=== PATIENT | male | born 1930 | race Caucasian/White ===

== ENCOUNTER 2016-06-06 11:17 | Inpatient (IN) ==
--- NOTE | 2016-06-06 13:05 | Emergency Department Note ---
Lower Extremity Injury HPI - General Chief Complaint: Extremity Injury, Lower Stated Complaint: Right hip pain Time Seen by Provider: 06/06/16 12:55 Source: patient Mode of arrival: wheelchair Limitations: no limitations - History of Present Illness HPI Narrative: 85-year-old male who had fallen yesterday at approximately 3:00 am pain in r ihip. Patient has a chronic pain to the right hip. However, as he had a hip replacement in 1991 and in the last 2 years. His been chronic increased pain. Just seen her orthopedic doctor, Dr. Cooper states he needs any replacement, however, due to his chronic illnesses. He did not feel he should have this operation. Does have atrial fibrillation and is on Coumadin. he states he did hit his head on the fall. Still complaining about pain to his right hand - Related Data Home Medications Medication Instructions Recorded Confirmed Allopurinol [Zyloprim] 100 mg PO DAILY 07/07/15 01/02/16 Digoxin [Digitek] 125 mcg PO DAILY 07/07/15 01/02/16 Furosemide [Lasix] 80 mg PO BID 07/07/15 01/02/16 HYDROcodone/ACETAMINOPHEN [Xodol 1 each PO TID PRN 07/07/15 01/02/16 10-300 Tablet] Insulin NPH, Human [HumaLIN N] 30 unit SQ QAM 07/07/15 01/02/16 Metoprolol Tartrate [Lopressor] 25 mg PO BID 07/07/15 01/02/16 Nateglinide [Starlix] 120 mg PO TID 07/07/15 01/02/16 Potassium Chloride [Klor-Con M20] 80 meq PO DAILY 07/07/15 01/02/16 Warfarin Sodium [Jantoven] 5 mg PO DAILY 07/07/15 01/02/16 Previous Rx's Medication Instructions Recorded Insulin NPH, Human [HumaLIN N] 1 unit SQ QAM #30 unit 06/27/15 Allergies Allergy/AdvReac Type Severity Reaction Status Date / Time No Known Drug Allergies Allergy Unknown Verified 06/06/16 11:21 [NO KNOWN DRUG ALLERGIES] Review of Systems All systems ED: reviewed and negative except as stated. Constitutional: Denies: fever Eyes: Denies: eye pain ENT ED: Denies: ear pain Cardiovascular: Denies: chest pain Respiratory: Denies: cough Gastrointestinal: Denies: abdominal pain Genitourinary: Denies: urgency Musculoskeletal: Reports: other (right hip pain in the right hand pain) Integumentary: Reports: rash Neurological: Reports: headache, weakness. Denies: numbness, paresthesias, confusion Psychiatric: Denies: anxiety, depression Endocrine: Reports: fatigue Past Medical History - Past Medical History Medical history: Reports: arthritis, atrial fibrillation, CHF, COPD, coronary artery disease, diabetes, other (recurrent anemia, gout) Surgical history ED: Reports: hip replacement - Social History smoking status: Former smoker Alcohol use: Reports: Rarely Drug use: Reports: none Physical Exam - General Limitations: no limitations General appearance: alert - Head Head exam: atraumatic, normocephalic - Eye Eye exam: Present: normal appearance, PERRL - ENT ENT exam: normal exam, normal oropharynx - Neck Neck exam: Present: normal inspection, full ROM. Absent: trachea midline - Chest Chest inspection: Present: normal inspection. Absent: symmetric chest wall rise - Respiratory Respiratory exam: Present: normal lung sounds bilaterally. Absent: respiratory distress, wheezes - Cardiovascular Cardiovascular exam: Present: regular rate, normal rhythm. Absent: bradycardia , tachycardia - Abdominal Exam Abdominal exam: Present: distention. Absent: tenderness - exam: Present: normal inspection. Absent: testicular tenderness, urethral discharge - Extremities Exam Extremities exam: Present: full ROM, tenderness (right hip). Absent: normal inspection - Expanded Upper Extremity Exam Arm exam: Present: normal inspection Elbow exam: Present: normal inspection Forearm/Wrist exam: Present: normal inspection Hand exam: Present: tenderness (3rd mc joint) - Back Exam Back exam: Present: normal inspection, full ROM - Neurological Exam Neurological exam: Present: alert, oriented X3, CN II-XII intact - Psychiatric Psychiatric exam: Present: normal affect, normal mood Course Vital Signs Temperature 97.2 F L 06/06/16 11:17 Pulse Rate 88 06/06/16 11:17 Respiratory Rate 20 06/06/16 11:17 Blood Pressure 139/78 06/06/16 11:17 Pulse Oximetry (%) 92 06/06/16 11:17 Temperature 97.2 F L 06/06/16 11:17 Pulse Rate 96 H 06/06/16 16:32 Respiratory Rate 23 06/06/16 16:32 Blood Pressure 110/66 06/06/16 16:32 Pulse Oximetry (%) 96 06/06/16 16:32 Extremity Injury, Lower - MDM Narrative Medical decision making narrative: dr Pearson has reviewed case and xrays and felt pt to be ptreated with a walker and pain meds and he will see in clinic. However pt is having difficulty amublating and lives by himself. Has had previous orthopedic consults and all have felt sugery would be high risk with all his co mobidities. Dr Adams contacted and pt to e admitted and placement for rehab center - Lab Data Result diagrams: 06/06/16 14:00 Lab Results 06/06/16 06/06/16 Range/Units 14:00 14:00 WBC 15.1 H (4.5-11.0) K/mcL RBC 4.89 (4.50-5.90) M/mcL Hgb 13.5 (13.5-16.5) g/dL Hct 41.8 (41.0-55.0) % POC Hct 43.0 (41.0-55.0) % MCV 85.4 (80.0-100.0) fL MCH 27.7 (26.0-34.0) pg MCHC 32.4 (31.0-36.0) g/dL RDW 15.9 H (11.5-14.5) % Plt Count 206 (140-440) K/mcL MPV 9.0 (7.4-10.4) fL Gran % 82.5 H (38.0-78.0) % Lymph % (Auto) 9.5 L (15.5-49.0) % [place] % (Auto) 6.0 (1.0-12.0) % Eos % (Auto) 1.5 (0.0-7.0) % Baso % (Auto) 0.5 (0.0-2.0) % Gran # 12.4 H (1.8-8.0) K/mcL Lymph # 1.4 L (1.5-4.8) K/mcL [place] # 0.9 (0.1-0.9) K/mcL Eos # 0.2 (0.0-0.7) K/mcL Baso # 0.1 (0.0-0.3) K/mcL POC Sodium 135 (133-145) mmol/L POC Potassium 3.4 (3.3-5.1) mmol/L POC Chloride 85 L (96-108) mmol/L POC Total CO2 41 H* (22-30) mmol/L POC BUN 37 H (8-23) mg/dl POC Creatinine 1.4 H (0.7-1.2) mg/dl POC Glucose 176 H (70-105) mg/dL POC WB Ioniz Calcium 1.11 L (1.16-1.32) mmol/L Disposition Clinical Impression: Closed right hip fracture Disposition: Xfer As Inpt ([facility]) Condition: Fair Referrals: Georgia Roberts MD [Primary Care Provider] -
--- NOTE | 2016-06-06 13:47 | Cat Scan Report ---
CLINICAL INFORMATION: Trauma - on Coumadin COMPARISON: 04/26/2012 TECHNIQUE: 2.5 mm helical slices were obtained in the skull base to vertex. Following reconstruction, axial reformatted images were reviewed at bone and parenchymal windows. FINDINGS: The ventricles, sulci, fissures, and cisterns are symmetrically enlarged compatible with moderate age-related atrophy - no subdural hemorrhage or other extra-axial fluid collection appreciated. Minimal chronic ischemic changes in the cerebral white matter similar previous study. There is no intracerebral hemorrhage, mass effect, edema or other acute finding. Bone windows shows no fracture or other osseous abnormality IMPRESSION: Moderate atrophy and chronic ischemic changes in deep cerebral white matter - expected for age. No intracerebral hemorrhage or other acute finding. Interpreted and Authenticated by: Jalil Whatley 06/06/16
--- NOTE | 2016-06-06 14:34 | XRay Report ---
CLINICAL INFORMATION: Trauma COMPARISON: 11/28/2015 FINDINGS: A mildly comminuted, minimally displaced fracture through the right greater trochanter is appreciated. The fracture lines communicate with the proximal femoral stem prostheses. The right total hip prostheses remains in stable alignment with slightly more lateral canting of the prosthetic acetabulum then is typically seen. Both SI and left hip joints are unremarkable IMPRESSION: Mildly comminuted, minimally displaced fracture through the right greater trochanter the fracture communicates with the prosthetic femoral stem. Interpreted and Authenticated by: Jalil Whatley 06/06/16
--- NOTE | 2016-06-06 14:36 | XRay Report ---
CLINICAL INFORMATION: Trauma COMPARISON: None. FINDINGS: No fracture identified. Moderate degenerative change in the first CMC appreciated. There is moderate synovial swelling in the second and third MCP which could be posttraumatic or due to arthritis. IMPRESSION: No evidence of fracture Moderate degenerative change in the first CMC Second and third MCP synovial swelling posttraumatic versus inflammatory Interpreted and Authenticated by: Jalil Whatley 06/06/16
[2016-06-06 14:37] LABS: Basophils # (Auto) 0.1 K/mcL (0.0-0.3); Basophils % (Auto) 0.5 % (0.0-2.0); Eosinophils # (Auto) 0.2 K/mcL (0.0-0.7); Eosinophils % (Auto) 1.5 % (0.0-7.0); Granulocytes % (Auto) 82.5 % (38.0-78.0); Lymphocytes # (Auto) 1.4 K/mcL (1.5-4.8); Lymphocytes % (Auto) 9.5 % (15.5-49.0); Mean Cell Volume 85.4 fL (80.0-100.0); Mean Corpuscular HGB Conc 32.4 g/dL (31.0-36.0); Mean Corpuscular Hemoglobin 27.7 pg (26.0-34.0); Monocytes # (Auto) 0.9 K/mcL (0.1-0.9); Platelet Count 206 K/mcL (140-440); RBC 4.89 M/mcL (4.50-5.90); Red Cell Distribution Width 15.9 % (11.5-14.5)
--- NOTE | 2016-06-06 14:38 | XRay Report ---
CLINICAL INFORMATION: Trauma COMPARISON: The 2016 FINDINGS: Moderate cardiomegaly is unchanged. Mediastinum and pulmonary vessels are normal on today's study. Lungs are clear. No effusions. IMPRESSION: Interval resolution in CHF. No acute cardiopulmonary or posttraumatic change Interpreted and Authenticated by: Jalil Whatley 06/06/16
[2016-06-06] MEDS ORDERED: 0.9 % SODIUM CHLORIDE 1,000 ML IV ONE (14:59)
[2016-06-06] MEDS: HYDROmorphone 2 MG/ML SYRINGE IV PRN ×2 (15:05→17:00)
[2016-06-06] MEDS ORDERED: POTASSIUM CHLORIDE 20 MEQ PACKET PO PRN (17:33)
[2016-06-06] MEDS ORDERED: ACETAMINOPHEN 1,000 MG/100 ML BOTTLE IV PRN (17:33)
[2016-06-06] MEDS ORDERED: HYDROmorphone 2 MG/ML SYRINGE IV PRN (17:33)
[2016-06-06] MEDS ORDERED: MAGNESIUM SULFATE 2 GM/50 ML BAG IV PRN (17:33)
[2016-06-06] MEDS ORDERED: ONDANSETRON 4 MG/2 ML VIAL IV PRN (17:33)
[2016-06-06] MEDS ORDERED: ACETAMINOPHEN 325 MG TABLET PO PRN (17:33)
[2016-06-06] MEDS ORDERED: LORazepam 2 MG/ML VIAL IV PRN (19:37)
[2016-06-06] MEDS ORDERED: CYCLOBENZAPRINE 10 MG TABLET PO PRN (19:37)
[2016-06-06] MEDS: 0.9 % SODIUM CHLORIDE 1,000 ML IV SCH (19:51)
--- NOTE | 2016-06-06 20:00 | History and Physical Report ---
DATE OF ADMISSION: 06/06/2016 DATE OF ADMISSION: 06/06/2016 REASON FOR ADMISSION: Fall, right hip fracture. HISTORY OF CHIEF COMPLAINT: The patient is an 85-year-old gentleman with a history of COPD on 3.5 liters of oxygen. The patient sees Georgia Roberts for primary medical issues and has been in his baseline state of health until last night. While attempting to go to the bathroom, he got off balance and fell and landed on his right hip sustaining injuries. He then came to [facility] ER due to pain and limiting mobility. Initial workup was significant for right hip fracture. Orthopedics was consulted; however, the fracture was deemed nonoperable and hospitalist service was subsequently consulted for management of pain and coordinating SNF transfer. At time of examination, the patient is alert, oriented but endorses significant pain and spasm around the right thigh. He denies lightheadedness, dizziness prior to fall and attributes to fall getting off balance. He is normally on 3.5 liters oxygen for his baseline COPD. His other medical conditions including diabetes, hypertension and atrial fibrillation for which he takes Coumadin and digoxin have been essentially well controlled by his primary care physician. Other than that, the patient denies chest pain, headache, fever, shaking chills, glandular swelling, weight loss, diarrhea, dysuria, or bloody stool. He further denies lower extremity swelling, chest pain, shortness of breath. REVIEW OF SYSTEMS: Ten-point review of system was performed and negative except the ones discussed above. PAST MEDICAL HISTORY: 1. History of diabetes mellitus type 2. 2. Atrial fibrillation. 3. Anticoagulation for CVA prophylaxis. 4. Hypertension. CURRENT MEDICATIONS: 1. Insulin Glargine. 2. Warfarin. 3. Digoxin. 4. Allopurinol 100. 5. Metoprolol 50 2 times a day. 6. Furosemide 80 2 times a day. 7. Glipizide 5 daily. 8. Potassium 20 2 times a day. Medication is currently being verified, exact doses are unclear. SOCIAL HISTORY: The patient is a former smoker. He has a son who lives in [place]. He is otherwise fairly independent. Denies history of alcoholism, smoking. He is a FULL CODE STATUS. FAMILY HISTORY: Nonrelevant. PHYSICAL EXAMINATION: GENERAL: The patient is alert, in significant distress from the thigh pain. BMI 30. Height 5 feet 8 inches. VITAL SIGNS: Blood pressure 134/95, respiratory rate 19, temperature 98.2, pulse 102, sats 97 percent on 3.5 liters of oxygen. HEENT: Pupils symmetric. Oral cavity is dry. No ear or nose discharge. Head is normocephalic and atraumatic. NECK: No lymphadenopathy. CHEST: S1, S2, irregular rhythm. Ejection systolic murmur grade 1. Diminished breath sounds at bases. ABDOMEN: Soft and nontender. LOWER EXTREMITIES: No cyanosis or clubbing. Stasis changes bilateral lower extremities. Right lower extremity shortened and externally rotated along with significant tenderness along the right thigh lateral aspect along with bluish discoloration/bruising. Also, left third metacarpophalangeal joint swelling along with lateral deviation of middle finger. SKIN: Otherwise no suspicious lesions. PSYCH: Alert, cooperative, mild anxiety. NEURO: Normal, high functional, limited neuro exam. LABS AND IMAGING: X-ray of hand: No evidence of fracture. X-ray hip: Right hip comminuted fracture. X-ray chest: Interval resolution of CHF. No acute process. AB.5/63/136. CT head: Chronic ischemic changes, moderate atrophy but no acute process. White count 15.1, hemoglobin 13.5, platelets 206. INR 1.7. Sodium 135, potassium 3.4, creatinine 1.4, BUN 37. Digoxin 0.7. ASSESSMENT AND PLAN: An 85-year-old admitted with right hip fracture. 1. Right hip fracture, deemed nonoperable by orthopedics. Continue pain management and arrange correction facility transfer for continued rehabilitation. 2. Prior medical issues including history of atrial fibrillation. Continue digoxin. Level is therapeutic. Anticoagulation for cerebrovascular accident prophylaxis. Continue Coumadin. 3. Diabetes mellitus type 2. Continue basal prandial insulin. 4. History of gout. Continue allopurinol. 5. Hypertension. Continue metoprolol. PLAN FOR TODAY: 1. Admit as inpatient. 2. Pain management. 3. Orthopedics consult. 4. Preexisting medical condition management as above. AA:morena Job ID: [id number] Doc ID: [id number] Brooks MENDES
[2016-06-06] MEDS: WARFARIN 2.5 MG TABLET PO SCH (20:11)
[2016-06-06] MEDS: IPRATROPIUM/ALBUTEROL 3 ML AMPUL.NEB NEB SCH (20:15)
[2016-06-06] MEDS: BUDESONIDE 0.5 MG/2 ML AMPUL.NEB NEB SCH (20:17)
[2016-06-06 20:55] LABS: Appearance,Urine CLEAR; Bilirubin,Urine NEG (NEG); Color,Urine YELLOW; Glucose,Urine (UA) NEGATIVE (NEG); Leukocyte Esterase,Urine NEG /uL (NEG); Nitrate,Urine NEG (NEG); Protein,Urine NEG (NEG); Urine Blood NEG mg/dL (<0.03); Urobilinogen,Urine NEG (NEG)
[2016-06-06] MEDS ORDERED: MAGNESIUM HYDROXIDE 30 ML ORAL.SUSP PO PRN (21:00)
[2016-06-06] MEDS ORDERED: DIGOXIN 125 MCG TABLET PO ONE (21:00)
[2016-06-06] MEDS ORDERED: traZODone HCL 50 MG TABLET PO PRN (21:00)
[2016-06-06] MEDS: HEPARIN 5,000 UNIT/ML VIAL SQ SCH (21:42)
[2016-06-06] MEDS: SENNOSIDES/DOCUSATE SODIUM 1 TAB TABLET PO SCH (21:42)
[2016-06-06] MEDS: DOCUSATE SODIUM 100 MG CAPSULE PO SCH (21:42)
[2016-06-06] MEDS: 0.9 % SODIUM CHLORIDE 10 ML SYRINGE IV SCH (21:42)
[2016-06-07] MEDS: IPRATROPIUM/ALBUTEROL 3 ML AMPUL.NEB NEB SCH ×7 (00:04→22:23)
[2016-06-07] MEDS: 0.9 % SODIUM CHLORIDE 10 ML SYRINGE IV SCH ×3 (05:00→22:06)
[2016-06-07 05:37] LABS: Mean Cell Volume 85.8 fL (80.0-100.0); Mean Corpuscular Hemoglobin 28.3 pg (26.0-34.0); Platelet Count 189 K/mcL (140-440); RBC 4.31 M/mcL (4.50-5.90); Red Cell Distribution Width 15.5 % (11.5-14.5)
[2016-06-07 06:51] LABS: ALT/SGPT 15 U/l (0-40); Albumin 3.3 gm/dL (3.2-5.2); Alkaline Phosphatase 60 U/L (39-117); Bilirubin,Direct < 0.2 mg/dL (0.0-0.3); Blood Urea Nitrogen 35 mg/dl (8-23); Gamma Glutamyl Transpeptidase 22 U/L (8-61); Magnesium 1.9 mg/dL (1.6-2.5)
[2016-06-07] MEDS: BUDESONIDE 0.5 MG/2 ML AMPUL.NEB NEB SCH ×2 (07:38→19:23)
[2016-06-07 08:15] LABS: Eosinophils % (Manual) 3 % (0-7); Lymphocytes % 17 % (15-49); Monocytes % (Manual) 8 % (1-12); Platelet Estimate NORMAL (NORMAL); RBC Morphology NORMAL (NORMAL); Segmented Neutrophils % 72 % (38-78)
[2016-06-07] MEDS: MULTIVIT,THER IRON,CA,FA & MIN 1 TABLET PO SCH (09:40)
[2016-06-07] MEDS: HEPARIN 5,000 UNIT/ML VIAL SQ SCH ×2 (09:41→20:34)
[2016-06-07] MEDS: DOCUSATE SODIUM 100 MG CAPSULE PO SCH ×2 (09:41→20:34)
--- NOTE | 2016-06-07 10:01 | Internal Med Progress Note ---
Medical - PN: Subj Patient information: Note initiated : 06/07/16 at 9:59 am Service Date, if different from initiated Date: [] Patient: Davide Santo 85 y/o M admitted on 06/06/16 for Right hip pain. Chief Complaint: [] Interval history: 06/06-patient admitted with right hip fracture. ER discussed with orthopedics and as per orthopedics the fracture is unchanged compared to 1 year ago and is nonoperable. Patient has had prior aseptic loosening and was seen by Dr. Benson. He carries multiple comorbidities including O2 dependent COPD and would be a high risk surgical candidate. I was requested by ED physician to admit the patient for pain management and coordinate transfer to care Center as patient has been living alone which would not be possible due to fracture. 06/07 patient undergoing pain management along with physical therapy. Case management coordinating SNF transfer. Case discussed with Dr. Miah Pearson orthopedics. continue pain management and coordination of transfer. - Constitutional Vitals: Vital Signs Temp Pulse Resp BP Pulse Ox 97.6 F 106 H 16 96/61 98 06/07/16 07:51 06/07/16 08:21 06/07/16 08:21 06/07/16 07:51 06/07/16 08:21 Period Temp Pulse Resp BP Sys/Fletcher Pulse Ox Last 24 Hr 97.6 F-98.5 F 80-115 16-20 96-124/61-86 96-98 Intake and Output 06/06/16 06/07/16 06/07/16 21:59 05:59 13:59 Intake Total 240 / 1240 750 / 750 1080 / 1080 Output Total 400 / 400 450 / 450 50 / 50 Balance -160 / 840 300 / 300 1030 / 1030 Weight 194 lb 8 oz Intake & Output: Intake & Output 06/06/16 06/07/16 06/07/16 21:59 05:59 13:59 Intake Total 240 / 1240 750 / 750 1080 / 1080 Output Total 400 / 400 450 / 450 50 / 50 Balance -160 / 840 300 / 300 1030 / 1030 Weight 194 lb 8 oz Intake: Oral 240 / 240 750 / 750 1080 / 1080 Output: Void Amount 400 / 400 450 / 450 50 / 50 Other: Meal Dinner Breakfast Percent of Meal Consumed 75% 100% Feeding Ability Independent Independent # Voids 1 2 # Bowel Movements 0 General appearance: no acute distress Exam: right thigh pain/spasm Nonlabored breathing No anxietyalert and oriented on 3 L oxygen Medical - PN: Obj Da - Labs CBC & Chem 7: 06/07/16 04:50 06/07/16 04:50 Labs: Abnormal Lab Results 06/07/16 06/07/16 06/07/16 04:50 04:50 04:50 WBC 13.5 H RBC 4.31 L Hgb 12.2 L Hct 37.0 L RDW 15.5 H PT 19.2 H INR 1.6 H Chloride 89 L Carbon Dioxide 35 H BUN 35 H Creatinine 1.5 H Glucose 191 H Uric Acid 9.0 H Triglycerides 184 H Meds: Medications Acetaminophen (Tylenol) 650 mg PO Q4-6HP PRN PRN Reason: PAIN/FEVER > 101 Acetaminophen/Hydrocodone Bitart ([place] 5/325mg) 0 tab PO Q4HP PRN PRN Reason: Pain Albuterol/Ipratropium (Duoneb) 3 ml NEB Q4HRT [facility] Last Admin: 06/07/16 07:39 Dose: 3 ml Budesonide (Pulmicort) 0.5 mg NEB Q12 [facility] Last Admin: 06/07/16 07:38 Dose: 0.5 mg Cyclobenzaprine HCl (Flexeril) 5 mg PO TIDP PRN PRN Reason: Muscle Spasm Docusate Sodium (Colace) 100 mg PO BID [facility] Last Admin: 06/07/16 09:41 Dose: 100 mg Heparin Sodium (Porcine) (Heparin) 5,000 unit SQ Q12 [facility] Last Admin: 06/07/16 09:41 Dose: 5,000 unit Hydromorphone HCl (Dilaudid) 0 mg IV Q4HP PRN PRN Reason: Pain Magnesium Sulfate (Magnesium Sulfate) 2 gm in 50 mls @ 50 mls/hr IV UD PRN PRN Reason: MG = or < 1.7 Sodium Chloride (Sodium Chloride 0.9%) 1,000 mls @ 50 mls/hr IV .Q20H [facility] Stop: 06/09/16 05:32 Last Admin: 06/06/16 19:51 Dose: 50 mls/hr Acetaminophen (Ofirmev) 1,000 mg in 100 mls @ 200 mls/hr IV Q6HP PRN PRN Reason: PAIN/FEVER > 101 Iron Carb/Multivit/Director Of Graduate Admissions/Folic Acid (Multivitamin W/Minerals) 1 tab PO DAILY [facility] Last Admin: 06/07/16 09:40 Dose: 1 tab Lorazepam (Ativan) 0.5 mg IV Q4HP PRN PRN Reason: Muscle Spasm Last Admin: 06/06/16 21:42 Dose: 0.5 mg Magnesium Hydroxide (Milk Of Magnesia) 30 ml PO HSP PRN PRN Reason: Constipation Ondansetron HCl (Zofran) 4 mg IV Q4-6HP PRN PRN Reason: Nausea And Vomiting Potassium Chloride (Klor-Con) 40 meq PO DAILYP PRN PRN Reason: K+ < 3.5 Senna/Docusate Sodium (Senna Plus Tablet) 1 tab PO HS [facility] Last Admin: 06/06/16 21:42 Dose: 1 tab Sodium Chloride (Saline Flush) 10 ml IV Q8 [facility] Last Admin: 06/07/16 05:00 Dose: Not Given Trazodone HCl (Desyrel) 50 mg PO [facility] PRN PRN Reason: Insomnia Warfarin Sodium (Coumadin) 2.5 mg PO MoWeFr@1400 [facility] Last Admin: 06/06/16 20:11 Dose: 2.5 mg Warfarin Sodium (Coumadin) 5 mg PO SuTuThSa@1400 [facility] Medical - PN: A/P - Time Spent With Patient Total time spent is greater than 50% in coordination of care (as documented) at patient's floor/unit and/or counseling patient: 15 - 24 minutes (1) Closed right hip fracture Status: Acute Assessment and plan: * right hip fracture-nonoperable as per orthopedics. continue pain management physical therapy and SNF transfer coordination * pain management on opioids * history of COPD - O2 dependent. Continue bronchodilators * history of gout on allopurinol * A. fib on digoxin/Metoprolol * Anticoagulation on warfarin for CVA prophylaxis * DM type II on basal prandial insulin * hypertension on metoprolol * full CODE STATUS plan * Pain management * Physical therapy * Pre-existing medical condition management as above * SNF transfer coordination Current Visit: Yes Medical - PN: Qual - VTE Deep Vein Thrombosis/Pulmonary Embolism Present on Admission: No
--- NOTE | 2016-06-07 10:54 | Consultation ---
DATE OF CONSULTATION: 06/07/2016 HISTORY: I was asked in consultation in the ER a question on this patient. I did review his chart from the office and he saw Dr. Benson approximately 1 year ago for a similar issue. 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 He fell recently, had similar symptoms and there is some fracturing of the greater trochanter, which was likely residual from that a year ago. There is no displacement. There remains aseptic loosening. Because of his extensive medical history and he is on 3.5 liters oxygen, the best option would be a revision total hip arthroplasty but medically that would be challenging for him. PLAN: The plan will be for admission to the hospital and send him to the care center since he has no one at home to help him and he can start progressing with weight bearing as tolerated, as long as he is not in any pain, but he needs to use his walker. He can follow up in the office in about 2 weeks for repeat radiographs. He is comfortable with this plan. NOHEMI:siva Job ID: [id number] Doc ID: [id number] Luis Pearson MD
[2016-06-07] MEDS ORDERED: WARFARIN 5 MG TABLET PO SCH (14:00)
[2016-06-07] MEDS: 0.9 % SODIUM CHLORIDE 1,000 ML IV SCH (17:08)
[2016-06-07] MEDS: SENNOSIDES/DOCUSATE SODIUM 1 TAB TABLET PO SCH (20:34)
[2016-06-07] MEDS: HYDROcodone/APAP 5/325MG TABLET PO PRN (20:37)
[2016-06-08] MEDS: IPRATROPIUM/ALBUTEROL 3 ML AMPUL.NEB NEB SCH ×5 (04:49→18:34)
[2016-06-08] MEDS: 0.9 % SODIUM CHLORIDE 10 ML SYRINGE IV SCH ×3 (04:50→21:16)
[2016-06-08 05:39] LABS: Mean Cell Volume 85.8 fL (80.0-100.0); Mean Corpuscular HGB Conc 33.7 g/dL (31.0-36.0); Mean Corpuscular Hemoglobin 28.9 pg (26.0-34.0); Platelet Count 161 K/mcL (140-440); RBC 3.73 M/mcL (4.50-5.90); Red Cell Distribution Width 15.7 % (11.5-14.5)
[2016-06-08 06:09] LABS: ALT/SGPT 12 U/l (0-40); Albumin 3.3 gm/dL (3.2-5.2); Albumin/Globulin Ratio 1.1 (1.0-2.3); Alkaline Phosphatase 50 U/L (39-117); Bilirubin,Direct < 0.2 mg/dL (0.0-0.3); Blood Urea Nitrogen 25 mg/dl (8-23); Gamma Glutamyl Transpeptidase 16 U/L (8-61); Magnesium 2.2 mg/dL (1.6-2.5); Uric Acid 7.8 mg/dL (2.5-8.0)
[2016-06-08] MEDS: BUDESONIDE 0.5 MG/2 ML AMPUL.NEB NEB SCH ×3 (06:53→18:34)
[2016-06-08 07:07] LABS: Anisocytosis 1+ (NONE SEEN); Band Neutrophils % 6 % (0-10); Lymphocytes % 4 % (15-49); Monocytes % (Manual) 8 % (1-12); Ovalocytes 1+ (NONE SEEN); Platelet Estimate NORMAL (NORMAL); RBC Morphology ABNORM (NORMAL); Segmented Neutrophils % 82 % (38-78)
[2016-06-08] MEDS: POTASSIUM CHLORIDE 20 MEQ TABLET PO SCH ×2 (07:58→14:23)
[2016-06-08] MEDS ORDERED: FUROSEMIDE 80 MG TABLET PO SCH ×2 (08:00→16:00)
[2016-06-08] MEDS: FUROSEMIDE 80 MG TABLET PO SCH ×2 (08:02→17:45)
[2016-06-08] MEDS ORDERED: HYDROCODONE/APAP 7.5/325MG TABLET PO PRN (08:17)
[2016-06-08] MEDS: MULTIVIT,THER IRON,CA,FA & MIN 1 TABLET PO SCH (08:18)
[2016-06-08] MEDS: DOCUSATE SODIUM 100 MG CAPSULE PO SCH ×2 (08:19→21:13)
[2016-06-08] MEDS: HEPARIN 5,000 UNIT/ML VIAL SQ SCH ×2 (08:19→21:13)
[2016-06-08] MEDS ORDERED: DEXTROSE 50% 50 ML VIAL IV PRN (08:19)
[2016-06-08] MEDS ORDERED: METOLAZONE 2.5 MG TABLET PO PRN (08:30)
[2016-06-08] MEDS: ALLOPURINOL 100 MG TABLET PO SCH (08:43)
[2016-06-08] MEDS: glipiZIDE 5 MG TAB.XL.24H PO SCH (08:44)
[2016-06-08] MEDS: METOPROLOL TARTRATE 25 MG TABLET PO SCH ×2 (08:44→21:15)
[2016-06-08] MEDS: INSULIN LISPRO 1 UNIT/0.01 ML UNIT SQ SCH ×4 (09:02→21:24)
[2016-06-08] MEDS: NEUTRA PHOS 1 PACKET PO SCH ×2 (10:24→21:15)
--- NOTE | 2016-06-08 10:30 | Internal Med Progress Note ---
Medical - PN: Subj Patient information: Note initiated : 06/08/16 at 10:28 am Service Date, if different from initiated Date: [] Patient: Davide Santo 85 y/o M admitted on 06/06/16 for Right Hip Pain/Right Hip Fracture. Chief Complaint: [] Interval history: 06/06-patient admitted with right hip fracture. ER discussed with orthopedics and as per orthopedics the fracture is unchanged compared to 1 year ago and is nonoperable. Patient has had prior aseptic loosening and was seen by Dr. Benson. He carries multiple comorbidities including O2 dependent COPD and would be a high risk surgical candidate. I was requested by ED physician to admit the patient for pain management and coordinate transfer to care Center as patient has been living alone which would not be possible due to fracture. 06/07 patient undergoing pain management along with physical therapy. Case management coordinating SNF transfer. Case discussed with Dr. Miah Pearson orthopedics. continue pain management and coordination of transfer. 06/08- patient doing well. No overnight events. No concerns per staff. No fever chills nausea vomiting. Case discussed with orthopedics. Continue physical therapy/weightbearing as tolerated as per orthopedic recommendations. Anticipate SNF transfer in 24 hours. Patient overnight afebrile. No active concerns - Constitutional Vitals: Vital Signs Temp Pulse Resp BP Pulse Ox 97.6 F 93 H 18 116/66 98 06/08/16 10:01 06/08/16 10:01 06/08/16 10:01 06/08/16 10:01 06/08/16 10:01 Period Temp Pulse Resp BP Sys/Fletcher Pulse Ox Last 24 Hr 96.8 F-99.8 F 86-135 18-24 100-148/61-83 93-98 Intake and Output 06/07/16 06/08/16 06/08/16 21:59 05:59 13:59 Intake Total 1600 / 1600 500 / 500 Output Total 525 / 525 500 / 500 Balance 1075 / 1075 0 / 0 Weight 200 lb 8 oz Intake & Output: Intake & Output 06/07/16 06/08/16 06/08/16 21:59 05:59 13:59 Intake Total 1600 / 1600 500 / 500 Output Total 525 / 525 500 / 500 Balance 1075 / 1075 0 / 0 Weight 200 lb 8 oz Intake: IV 1000 / 1000 Sodium Chloride 0.9% 1, 1000 / 1000 000 ml @ 50 mls/hr IV . Q20H [facility] Rx#:[id number] Oral 600 / 600 500 / 500 Output: Void Amount 525 / 525 500 / 500 Other: # Voids 1 # Bowel Movements 1 1 General appearance: cooperative, no acute distress Exam: No anxiety nonlabored breathing alert oriented no lymphedema Medical - PN: Obj Da - Labs CBC & Chem 7: 06/08/16 04:40 06/08/16 04:40 Labs: Abnormal Lab Results 06/08/16 06/08/16 06/08/16 04:40 04:40 04:40 WBC 12.4 H RBC 3.73 L Hgb 10.8 L Hct 32.0 L RDW 15.7 H Seg Neutrophils % 82 H Lymphocytes % 4 L Nucleated RBCs 1 H RBC Morphology Abnorm A Polychromasia Few A Anisocytosis 1+ A Ovalocytes 1+ A PT 19.7 H INR 1.6 H Chloride 89 L Carbon Dioxide 35 H BUN 25 H Creatinine Glucose 288 H Uric Acid Phosphorus 2.4 L Triglycerides 06/07/16 06/07/16 06/07/16 04:50 04:50 04:50 WBC 13.5 H RBC 4.31 L Hgb 12.2 L Hct 37.0 L RDW 15.5 H Seg Neutrophils % Lymphocytes % Nucleated RBCs RBC Morphology Polychromasia Anisocytosis Ovalocytes PT 19.2 H INR 1.6 H Chloride 89 L Carbon Dioxide 35 H BUN 35 H Creatinine 1.5 H Glucose 191 H Uric Acid 9.0 H Phosphorus Triglycerides 184 H Meds: Medications Acetaminophen (Tylenol) 650 mg PO Q4-6HP PRN PRN Reason: PAIN/FEVER > 101 Acetaminophen/Hydrocodone Bitart ([place] 5/325mg) 0 tab PO Q4HP PRN PRN Reason: Pain Last Admin: 06/07/16 20:37 Dose: 1 tab Albuterol/Ipratropium (Duoneb) 3 ml NEB Q4HRT [facility] Last Admin: 06/08/16 06:53 Dose: 3 ml Allopurinol (Zyloprim) 100 mg PO DAILY [facility] Last Admin: 06/08/16 08:43 Dose: 100 mg Budesonide (Pulmicort) 0.5 mg NEB Q12 [facility] Last Admin: 06/08/16 06:53 Dose: 0.5 mg Cyclobenzaprine HCl (Flexeril) 5 mg PO TIDP PRN PRN Reason: Muscle Spasm Dextrose (Dextrose 50%) 0 ml IV UD PRN PRN Reason: Hypoglycemia Diagnostic Test (Pha) (Accu-Chek) 1 each FS ACHS [facility] Last Admin: 06/08/16 09:02 Dose: 1 each Digoxin (Lanoxin) 125 mcg PO SuMoWeFr@1400 [facility] Digoxin (Lanoxin) 62.5 mcg PO TuThSa@1400 [facility] Docusate Sodium (Colace) 100 mg PO BID [facility] Last Admin: 06/08/16 08:19 Dose: 100 mg Furosemide (Lasix) 80 mg PO BIDD [facility] Last Admin: 06/08/16 08:02 Dose: 80 mg Glipizide (Glucotrol Xl) 5 mg PO QAMAC [facility] Last Admin: 06/08/16 08:44 Dose: 5 mg Heparin Sodium (Porcine) (Heparin) 5,000 unit SQ Q12 [facility] Last Admin: 06/08/16 08:19 Dose: 5,000 unit Hydromorphone HCl (Dilaudid) 0 mg IV Q4HP PRN PRN Reason: Pain Magnesium Sulfate (Magnesium Sulfate) 2 gm in 50 mls @ 50 mls/hr IV UD PRN PRN Reason: MG = or < 1.7 Sodium Chloride (Sodium Chloride 0.9%) 1,000 mls @ 50 mls/hr IV .Q20H [facility] Stop: 06/09/16 05:32 Last Admin: 06/07/16 17:08 Dose: 50 mls/hr Acetaminophen (Ofirmev) 1,000 mg in 100 mls @ 200 mls/hr IV Q6HP PRN PRN Reason: PAIN/FEVER > 101 Insulin Glargine (Lantus) 5 unit SQ HS [facility] Insulin Human Lispro (Humalog) 0 unit SQ [facility] PRN Reason: Protocol Last Admin: 06/08/16 09:02 Dose: 4 unit Iron Carb/Multivit/[place]/Folic Acid (Multivitamin W/Minerals) 1 tab PO DAILY [facility] Last Admin: 06/08/16 08:18 Dose: 1 tab Lorazepam (Ativan) 0.5 mg IV Q4HP PRN PRN Reason: Muscle Spasm Last Admin: 06/06/16 21:42 Dose: 0.5 mg Magnesium Hydroxide (Milk Of Magnesia) 30 ml PO HSP PRN PRN Reason: Constipation Metolazone (Zaroxolyn) 2.5 mg PO DAILYP PRN PRN Reason: Edema Last Admin: 06/08/16 08:43 Dose: 2.5 mg Metoprolol Tartrate (Lopressor) 50 mg PO BID [facility] Last Admin: 06/08/16 08:44 Dose: 50 mg Ondansetron HCl (Zofran) 4 mg IV Q4-6HP PRN PRN Reason: Nausea And Vomiting Potassium Chloride (Klor-Con) 40 meq PO DAILYP PRN PRN Reason: K+ < 3.5 Potassium Chloride (Kdur) 20 meq PO BID@0800,1200 [facility] Last Admin: 06/08/16 07:58 Dose: 20 meq Potassium Chloride (Kdur) 80 meq PO [facility] Potassium/Phosphorus/Sodium (Neutra Phos) 1 packet PO BID [facility] Last Admin: 06/08/16 10:24 Dose: 1 packet Senna/Docusate Sodium (Senna Plus Tablet) 1 tab PO [facility] Last Admin: 06/07/16 20:34 Dose: 1 tab Sodium Chloride (Saline Flush) 10 ml IV Q8 [facility] Last Admin: 06/08/16 04:50 Dose: Not Given Trazodone HCl (Desyrel) 50 mg PO HSP PRN PRN Reason: Insomnia Warfarin Sodium (Coumadin) 2.5 mg PO MoWeFr@1400 [facility] Last Admin: 06/06/16 20:11 Dose: 2.5 mg Warfarin Sodium (Coumadin) 5 mg PO SuTuThSa@1400 [facility] Last Admin: 06/07/16 17:04 Dose: 5 mg Medical - PN: A/P - Time Spent With Patient Total time spent is greater than 50% in coordination of care (as documented) at patient's floor/unit and/or counseling patient: 15 - 24 minutes (1) Closed right hip fracture Status: Acute Assessment and plan: * Right hip fracture-nonoperable as per orthopedics. continue pain management, /weightbearing as tolerated and physical therapy . anticipate SNF transfer in a.m. * pain management -stable on opioids * history of COPD - O2 dependent. Continue bronchodilators * history of gout on allopurinol * A. fib on digoxin/Metoprolol * Anticoagulation on warfarin for CVA prophylaxis * DM type II on basal prandial insulin * hypertension on metoprolol * full CODE STATUS plan * continue weightbearing as tolerated along with Physical therapy * Pre-existing medical condition management as above * SNF transfer in a.m. Current Visit: Yes Medical - PN: Qual - VTE Deep Vein Thrombosis/Pulmonary Embolism Present on Admission: No
[2016-06-08] MEDS: HYDROcodone/APAP 5/325MG TABLET PO PRN ×2 (13:59→19:31)
[2016-06-08] MEDS ORDERED: DIGOXIN 125 MCG TABLET PO SCH (14:00)
[2016-06-08] MEDS: 0.9 % SODIUM CHLORIDE 1,000 ML IV SCH (14:08)
[2016-06-08] MEDS: WARFARIN 2.5 MG TABLET PO SCH (14:23)
[2016-06-08] MEDS ORDERED: POTASSIUM CHLORIDE 20 MEQ TABLET PO SCH ×2 (21:00)
[2016-06-08] MEDS ORDERED: INSULIN GLARGINE, HUMAN 1 UNIT/0.01 ML SQ SCH (21:00)
[2016-06-08] MEDS: SENNOSIDES/DOCUSATE SODIUM 1 TAB TABLET PO SCH (21:17)
[2016-06-09] MEDS: IPRATROPIUM/ALBUTEROL 3 ML AMPUL.NEB NEB SCH ×3 (01:29→07:07)
[2016-06-09] MEDS: BUDESONIDE 0.5 MG/2 ML AMPUL.NEB NEB SCH ×2 (01:29→07:07)
[2016-06-09] MEDS: 0.9 % SODIUM CHLORIDE 10 ML SYRINGE IV SCH ×2 (05:18→05:31)
[2016-06-09 06:53] LABS: Mean Corpuscular HGB Conc 32.9 g/dL (31.0-36.0); Mean Corpuscular Hemoglobin 28.6 pg (26.0-34.0); Platelet Count 156 K/mcL (140-440); RBC 3.62 M/mcL (4.50-5.90); Red Cell Distribution Width 15.2 % (11.5-14.5)
[2016-06-09 07:52] LABS: ALT/SGPT 13 U/l (0-40); Albumin 3.2 gm/dL (3.2-5.2); Alkaline Phosphatase 48 U/L (39-117); Bilirubin,Direct < 0.2 mg/dL (0.0-0.3); Blood Urea Nitrogen 28 mg/dl (8-23); Gamma Glutamyl Transpeptidase 16 U/L (8-61); Uric Acid 7.7 mg/dL (2.5-8.0)
[2016-06-09] MEDS: FUROSEMIDE 80 MG TABLET PO SCH (07:58)
[2016-06-09] MEDS: glipiZIDE 5 MG TAB.XL.24H PO SCH (08:00)
[2016-06-09] MEDS: HEPARIN 5,000 UNIT/ML VIAL SQ SCH (08:24)
[2016-06-09] MEDS: NEUTRA PHOS 1 PACKET PO SCH (08:24)
[2016-06-09] MEDS: METOPROLOL TARTRATE 25 MG TABLET PO SCH (08:24)
[2016-06-09] MEDS: POTASSIUM CHLORIDE 20 MEQ TABLET PO SCH (08:24)
[2016-06-09] MEDS: MULTIVIT,THER IRON,CA,FA & MIN 1 TABLET PO SCH (08:24)
[2016-06-09] MEDS: ALLOPURINOL 100 MG TABLET PO SCH (08:25)
[2016-06-09] MEDS: DOCUSATE SODIUM 100 MG CAPSULE PO SCH ×2 (08:25→08:27)
--- NOTE | 2016-06-09 08:43 | Discharge Summary ---
Medical - DS: Prov Patient information: Note initiated : 06/09/16 at 8:40 am Service Date, if different from initiated Date: [] Patient: Davide Santo 85 y/o M admitted on 06/06/16 for Right Hip Pain/Right Hip Fracture. Chief Complaint: [] Date of admission: 06/06/16 17:25 Discharge date: 06/09/16 Primary care physician: [f_Reg Prim Care Provider] Consults: 06/08/16 10:18 Consult to Physician [CONS] Routine Comment: Consulting Provider: [facility] [place] Reason For Exam: Physician to Consult Medical - DS: Meds - Discharge Medications Prescriptions: Hydrocodone/APAP 7.5/325Mg [[place] 7.5/325Mg] 1 - 2 tab PO BIDP PRN #14 tablet PRN Reason: Pain Active and Home Medications: Home Medications Allopurinol [Zyloprim] 100 mg PO DAILY 07/07/15 [History Confirmed 06/06/16 Last Taken 06/06/16 08:00] Digoxin [Digitek] 125 mcg PO SUMOWEFR@1400 07/07/15 [History Confirmed 06/06/16 Last Taken 06/04/16] Furosemide [Lasix] 80 mg PO BIDD 07/07/15 [History Confirmed 06/06/16 Last Taken 06/06/16 08:00] Metoprolol Tartrate [Lopressor] 50 mg PO BID 07/07/15 [History Confirmed Last Taken 06/06/16 08:00] Potassium Chloride [Klor-Con M20] 20 meq PO BID@0800,1200 07/07/15 [History Confirmed 06/06/16 Last Taken 06/06/16 08:00] Warfarin Sodium [Jantoven] 5 mg PO SUTUTHSA@1400 07/07/15 [History Confirmed Last Taken 06/05/16] Digoxin [Lanoxin] 62.5 mcg PO TUTHSA@1400 06/06/16 [History Confirmed 06/06/16 Last Taken 06/05/16] Insulin Glargine, Human [Lantus] 5 unit SQ HS 06/06/16 [History Confirmed Last Taken 06/05/16] Potassium Chloride [Kdur] 40 meq PO HS 06/06/16 [History Confirmed 06/06/16 Last Taken 06/05/16] Warfarin [Coumadin] 2.5 mg PO MOWEFR@1400 06/06/16 [History Confirmed 06/06/16 Last Taken 06/04/16] glipiZIDE [Glipizide ER] 5 mg PO DAILY 06/06/16 [History Confirmed 06/06/16 Last Taken 06/06/16 08:00] Metolazone 2.5 mg PO PRN PRN 06/07/16 [History Confirmed 06/07/16 Last Taken Unknown] Hydrocodone/APAP 7.5/325Mg [[place] 7.5/325Mg] 1 - 2 tab PO BIDP PRN #14 tablet [Rx Last Taken Unknown] Medical - DS: Hosp Hospital course: DISCHARGE DIAGNOSIS * Right hip fracture-nonoperable as per orthopedics. (Refer orthopedic consult note) adequate pain management, continue weightbearing as tolerated and physical therapy at SNF * pain management -stable on opioids * history of COPD - O2 dependent. Continue bronchodilators * history of gout on allopurinol * A. fib on digoxin/Metoprolol * Anticoagulation on warfarin for CVA prophylaxis * DM type II on basal prandial insulin * hypertension on metoprolol [facility] Mr. Santo is a 85 year old male 06/06-patient admitted with right hip fracture. ER discussed with orthopedics and as per orthopedics the fracture is unchanged compared to 1 year ago and is nonoperable. Patient has had prior aseptic loosening and was seen by Dr. Benson. He carries multiple comorbidities including O2 dependent COPD and would be a high risk surgical candidate. I was requested by ED physician to admit the patient for pain management and coordinate transfer to care Center as patient has been living alone which would not be possible due to fracture. 06/07 patient undergoing pain management along with physical therapy. Case management coordinating SNF transfer. Case discussed with Dr. Miah Pearson orthopedics. continue pain management and coordination of transfer. 06/08- patient doing well. No overnight events. No concerns per staff. No fever chills nausea vomiting. Case discussed with orthopedics. Continue physical therapy/weightbearing as tolerated as per orthopedic recommendations. Anticipate SNF transfer in 24 hours. Patient overnight afebrile. No active concerns 06/09 patient doing well. Transferring to SNF For continued posthospitalization rehabilitation and weight-bearing as tolerated as per orthopedic recommendations. Discharge diagnosis: . - Time Spent with Patient Total time spent providing and/or coordinating discharge services: Greater than 30 minutes Medical - DS: Exam - Constitutional Vitals: Vital Signs Temp Pulse Pulse Resp BP Pulse Ox 06/09/16 07:22 18 96 06/09/16 07:11 88 18 96 06/09/16 06:34 98.7 F 20 118/79 96 06/09/16 03:25 98.0 F 103 H 16 108/73 98 06/09/16 00:25 98.3 F 97 H 16 140/75 98 06/08/16 20:00 98.1 F 109 H 18 105/66 97 06/08/16 18:35 108 H 18 06/08/16 15:58 98.2 F 18 117/63 93 06/08/16 14:36 108 H 20 06/08/16 12:02 97.8 F 103 H 20 116/82 97 06/08/16 11:42 108 H 18 97 06/08/16 10:01 97.6 F 93 H 18 116/66 98 06/08/16 08:49 121 H 22 Intake and Output 06/08/16 06/09/16 06/09/16 21:59 05:59 13:59 Intake Total 2210 / 2210 869 / 869 Output Total 1175 / 1175 1625 / 1625 250 / 250 Balance 1035 / 1035 -756 / -756 -250 / -250 Intake: IV 1000 / 1000 769 / 769 Sodium Chloride 0.9% 1, 1000 / 1000 769 / 769 000 ml @ 50 mls/hr IV . Q20H [facility] Rx#:[id number] Oral 860 / 860 100 / 100 Tube Feeding 350 / 350 Output: Void Amount 1175 / 1175 1625 / 1625 250 / 250 Other: Meal Dinner Percent of Meal Consumed 100% Feeding Ability Independent # Voids 1 1 # Bowel Movements 1 Weight 202 lb Medical - DS: Data Labs on day of discharge: Labs from last 24 hours 06/09/16 06/09/16 06/09/16 07:12 04:42 04:42 WBC RBC Hgb Hct MCV MCH MCHC RDW Plt Count MPV Total Counted Band Neutrophils % Platelet Estimate RBC Morphology PT Pending TNP INR Pending Not Reportable Sodium 137 Potassium 3.7 Chloride 91 L Carbon Dioxide 34 H Anion Gap 12.0 BUN 28 H Creatinine 1.3 H GFR Calculation 50 Glucose 151 H Uric Acid 7.7 Calcium 8.9 Phosphorus 2.5 L Magnesium 2.0 Total Bilirubin 0.7 Direct Bilirubin < 0.2 GGT 16 AST 14 ALT 13 Alkaline Phosphatase 48 Lactate Dehydrogenase 215 Total Protein 6.3 Albumin 3.2 Globulin 3.1 Albumin/Globulin Ratio 1.0 Triglycerides 127 // 04:42 WBC 11.6 H RBC 3.62 L Hgb 10.4 L Hct 31.4 L MCV 87.0 MCH 28.6 MCHC 32.9 RDW 15.2 H Plt Count 156 MPV 8.9 Total Counted Pending Band Neutrophils % Not Reportable Platelet Estimate Pending RBC Morphology Pending PT INR Sodium Potassium Chloride Carbon Dioxide Anion Gap BUN Creatinine GFR Calculation Glucose Uric Acid Calcium Phosphorus Magnesium Total Bilirubin Direct Bilirubin GGT AST ALT Alkaline Phosphatase Lactate Dehydrogenase Total Protein Albumin Globulin Albumin/Globulin Ratio Triglycerides Medical - DS: A/P - Patient/Caregiver Discharge Instructions Activity: as per physical therapy Diet: Regular Diet Additional Instructions: Schedule follow up visit with Dr Pearson in 2 weeks at [facility] office per Dr Pearson. Contact the office on Sunday 06/11 to schedule. [phone] Follow-up PCP in 5 days. Contact the office on Sunday 06/11 to schedule. [phone] Coumadin /INR as prior I recommend SNF physician to check INR, CBC BMP as a posthospital follow-up Continue aggressive bowel regimen to prevent constipation Continue fall precautions Continue aggressive PT OT at [facility] All meals on chair sitting upright at 90 degrees to prevent aspiration Return to ER if worsening fever chills shortness of breath, diarrhea, bleeding, signs of infection, uncontrolled pain, unable to go to the bathroom Continue regular diet as tolerated Activity as advised Discussed importance of medication adherence Please review medication list with patient prior to discharge pain medication can cause constipation. Take an over the counter stool softener while on pain meds Portions of this chart may have been created with [employer] voice recognition software. Occasional wrong-word or ?sound-like? substitutions may have occurred due to the inherent limitations of voice recognition software. Please read the chart carefully and recognize, using context, where the substitutions have occurred. CC- PCP Prescriptions: Hydrocodone/APAP 7.5/325Mg [[place] 7.5/325Mg] 1 - 2 tab PO BIDP PRN #14 tablet PRN Reason: Pain - Follow up Plan Follow up with: Georgia Roberts MD [Primary Care Provider] - (Please call/schedule follow up appointment to be seen in five days.) Jalil Pearson MD [Physician] - (Please call/schedule follow up to be seen in two weeks.) Disposition: [facility] SNF Prognosis: Fair Rehab Potential: Fair I certify that the patient requires SNF services: Yes Overall status at discharge: patient is progressing back to baseline Medical - DS: Qual - VTE Deep Vein Thrombosis/Pulmonary Embolism Present on Admission: No
[2016-06-09] MEDS: INSULIN LISPRO 1 UNIT/0.01 ML UNIT SQ SCH (08:49)
[2016-06-09 08:55] LABS: Anisocytosis 1+ (NONE SEEN); Eosinophils % (Manual) 2 % (0-7); Lymphocytes % 13 % (15-49); Monocytes % (Manual) 9 % (1-12); Ovalocytes FEW (NONE SEEN); Platelet Estimate NORMAL (NORMAL); RBC Morphology ABNORM (NORMAL); Segmented Neutrophils % 76 % (38-78)
[2016-06-09] MEDS ORDERED: DIGOXIN 125 MCG TABLET PO SCH (14:00)
== END 2016-06-09 09:30 | DRG 536 ==
LOC: ED-MC 11:17 → MEDSUR 17:20
PROVIDERS: ADMIT Internal Medicine; ATTEND Internal Medicine

== ENCOUNTER 2017-03-15 12:27 | Inpatient (IN) ==
--- NOTE | 2017-03-15 13:44 | Emergency Department Note ---
Weakness HPI - General Chief complaint: Weakness Stated complaint: Weakness Time Seen by Provider: 03/15/17 12:37 Source: patient Mode of arrival: wheelchair Limitations: no limitations - History of Present Illness HPI Narrative: 86-year-old male presents for worsening weakness 4 days, abdominal pain, bloody stools, and worsening shortness of breath. The blood in his stools gotten worse in the last 2 days along with the shortness of breath. He was seen at [facility] and had a chest x-ray which showed a CHF exacerbation. He thinks he may have a history of diverticulitis but is not sure. He did have colonoscopy and endoscopy in August. He has type 2 diabetes and A. fib. He is on blood thinner. He does have COPD and is on 4 L chronically. He does take insulin for his diabetes. He has been having 5 stools per day in the last 3-4 days. There is tom blood in it and he had a rectal exam at [facility] and there is tom blood. No fevers or chills. No urinary symptoms. No nausea or vomiting. He is very pleasant and fun to talk to. - Related Data Home Medications Medication Instructions Recorded Confirmed Allopurinol [Zyloprim] 100 mg PO DAILY 07/07/15 06/06/16 Digoxin [Digitek] 125 mcg PO SUMOWEFR@1400 07/07/15 06/06/16 Furosemide [Lasix] 80 mg PO BIDD 07/07/15 06/06/16 Metoprolol Tartrate [Lopressor] 50 mg PO BID 07/07/15 06/07/16 Potassium Chloride [Klor-Con M20] 20 meq PO BID@0800,1200 07/07/15 06/06/16 Digoxin [Lanoxin] 62.5 mcg PO TUTHSA@1400 06/06/16 06/06/16 Insulin Glargine, Human [Lantus] 5 unit SQ HS 06/06/16 06/07/16 Potassium Chloride [Kdur] 40 meq PO HS 06/06/16 06/06/16 glipiZIDE [Glipizide ER] 5 mg PO DAILY 06/06/16 06/06/16 Metolazone 2.5 mg PO PRN PRN 06/07/16 06/07/16 Previous Rx's Medication Instructions Recorded Hydrocodone/APAP 7.5/325Mg [[place] 1 - 2 tab PO BIDP PRN #14 tablet 06/08/16 7.5/325Mg] Allergies Allergy/AdvReac Type Severity Reaction Status Date / Time No Known Drug Allergies Allergy Unknown Verified 03/15/17 12:32 [NO KNOWN DRUG ALLERGIES] Review of Systems All systems ED: reviewed and negative except as stated. Past Medical History - Past Medical History Medical history: Reports: arthritis, atrial fibrillation, CHF, COPD, coronary artery disease, DM Psychiatric history: Reports: no psych history Surgical history ED: Reports: non-contributory, hip replacement Family history: Reports: non-contributory - Social History smoking status: Former smoker Alcohol use: Reports: Rarely Drug use: Reports: none Physical Exam Limitations: no limitations General appearance: alert, in no apparent distress Head: atraumatic Eye: Present: normal appearance. Absent: conjunctival injection Neck: Present: normal inspection, full ROM Chest: Present: normal inspection, symmetric chest wall rise Respiratory: Present: other (decreased in lower lobes. No crackles) Cardiovascular: Present: irregular rhythm, normal heart sounds Abdominal: Present: soft, tenderness, normal bowel sounds. Absent: distention, guarding, rebound, rigidity Abdominal tenderness: Present: LLQ, moderate Extremities: Present: normal inspection, full ROM Neurological: Present: alert, oriented X3 Psychiatric: Present: normal affect, normal mood Skin: Present: warm, dry, intact Course Vital Signs Temperature 96.7 F L 03/15/17 12:28 Pulse Rate 80 03/15/17 12:28 Respiratory Rate 22 03/15/17 12:28 Blood Pressure 126/35 03/15/17 12:28 Pulse Oximetry (%) 92 03/15/17 12:28 Temperature 96.7 F L 03/15/17 12:28 Pulse Rate 66 03/15/17 16:04 Respiratory Rate 18 03/15/17 16:04 Blood Pressure 110/78 03/15/17 16:04 Pulse Oximetry (%) 98 03/15/17 16:04 Weakness - Lab Data Lab results reviewed: Yes I reviewed the patient's lab results. Result diagrams: 03/15/17 13:20 03/15/17 13:35 Lab Results 03/15/17 03/15/17 03/15/17 Range/Units 13:20 13:20 13:35 WBC 10.2 (4.5-11.0) K/mcL RBC 3.62 L (4.50-5.90) M/mcL Hgb 10.1 L (13.5-16.5) g/dL Hct 29.5 L (41.0-55.0) % POC Hct 30.0 L (41.0-55.0) % MCV 81.6 (80.0-100.0) fL MCH 27.9 (26.0-34.0) pg MCHC 34.2 (31.0-36.0) g/dL RDW 16.2 H (11.5-14.5) % Plt Count 216 (140-440) K/mcL MPV 8.4 (7.4-10.4) fL Total Counted 100 Seg Neutrophils % 73 (38-78) % Band Neutrophils % 5 (0-10) % Lymphocytes % 7 L (15-49) % Monocytes % (Manual) 9 (1-12) % Eosinophils % (Manual) 6 (0-7) % Platelet Estimate Normal (NORMAL) RBC Morphology Abnorm A (NORMAL) Polychromasia 1+ A (NONE SEEN) Anisocytosis 1+ A (NONE SEEN) PT (11.9-14.5) sec INR (0.9-1.1) POC Sodium 135 (133-145) mmol/L Sodium 137 (133-145) mmol/L POC Potassium 3.5 (3.3-5.1) mmol/L Potassium 3.3 (3.3-5.1) mmol/L POC Chloride 88 L (96-108) mmol/L Chloride 87 L (96-108) mmol/L Carbon Dioxide 35 H (22-30) mmol/L POC Total CO2 40 H (22-30) mmol/L Anion Gap 15.0 (8-16) POC BUN 49 H (8-23) mg/dl BUN 45 H (8-23) mg/dl Creatinine 1.8 H (0.7-1.2) mg/dl POC Creatinine 2.0 H (0.7-1.2) mg/dl GFR Calculation 34 Glucose 129 H (70-105) mg/dL POC Glucose 132 H (70-105) mg/dL Calcium 10.2 (8.6-10.4) mg/dl POC WB Ioniz Calcium 1.12 L (1.16-1.32) mmol/L Total Bilirubin 0.7 (0.0-1.0) mg/dL AST 16 (0-37) U/l ALT 11 (0-40) U/l Alkaline Phosphatase 61 (39-117) U/L Troponin T 0.04 H* (0-0.03) ng/ml NT-Pro-B Natriuret Pep 1167.0 H (0-450) pg/ml Total Protein 8.0 (5.9-8.4) gm/dL Albumin 4.3 (3.2-5.2) gm/dL Globulin 3.7 (2.2-3.7) gm/dL Albumin/Globulin Ratio 1.2 (1.0-2.3) 03/15/17 Range/Units 13:35 WBC (4.5-11.0) K/mcL RBC (4.50-5.90) M/mcL Hgb (13.5-16.5) g/dL Hct (41.0-55.0) % POC Hct (41.0-55.0) % MCV (80.0-100.0) fL MCH (26.0-34.0) pg MCHC (31.0-36.0) g/dL RDW (11.5-14.5) % Plt Count (140-440) K/mcL MPV (7.4-10.4) fL Total Counted Seg Neutrophils % (38-78) % Band Neutrophils % (0-10) % Lymphocytes % (15-49) % Monocytes % (Manual) (1-12) % Eosinophils % (Manual) (0-7) % Platelet Estimate (NORMAL) RBC Morphology (NORMAL) Polychromasia (NONE SEEN) Anisocytosis (NONE SEEN) PT 15.2 H (11.9-14.5) sec INR 1.2 H (0.9-1.1) POC Sodium (133-145) mmol/L Sodium (133-145) mmol/L POC Potassium (3.3-5.1) mmol/L Potassium (3.3-5.1) mmol/L POC Chloride (96-108) mmol/L Chloride (96-108) mmol/L Carbon Dioxide (22-30) mmol/L POC Total CO2 (22-30) mmol/L Anion Gap (8-16) POC BUN (8-23) mg/dl BUN (8-23) mg/dl Creatinine (0.7-1.2) mg/dl POC Creatinine (0.7-1.2) mg/dl GFR Calculation Glucose (70-105) mg/dL POC Glucose (70-105) mg/dL Calcium (8.6-10.4) mg/dl POC WB Ioniz Calcium (1.16-1.32) mmol/L Total Bilirubin (0.0-1.0) mg/dL AST (0-37) U/l ALT (0-40) U/l Alkaline Phosphatase (39-117) U/L Troponin T (0-0.03) ng/ml NT-Pro-B Natriuret Pep (0-450) pg/ml Total Protein (5.9-8.4) gm/dL Albumin (3.2-5.2) gm/dL Globulin (2.2-3.7) gm/dL Albumin/Globulin Ratio (1.0-2.3) - Radiology Data Radiology results reviewed: Yes I reviewed the patient's radiology results. 1. Sigmoid diverticulosis. No CT evidence for diverticulitis; however, mild diverticulitis may be CT occult. 2. Right hip prostheses is anatomically aligned. There does appear to be marked granulomatous destruction of a greater trochanteric fragment and moderate destruction of the medial right acetabulum. Consider: CT-guided biopsy 3. . On the hernia containing only mesenteric fat 4. Moderate interstitial disease the lung bases - suspect interstitial fibrosis CHF on chest X-ray - EKG Data EKG attestation: Yes I reviewed and interpreted this EKG. EKG results narrative: a-fib, no acute abnormality Disposition Pt seen by ENGINEERING DESIGN SUPERVISOR/PA only: Yes Clinical Impression: CHF (congestive heart failure), Acute lower GI bleeding Disposition: Xfer As Inpt ([facility]) Condition: Fair Referrals: Georgia Roberts MD [Primary Care Provider] -
[2017-03-15 14:03] LABS: Mean Cell Volume 81.6 fL (80.0-100.0); Mean Corpuscular HGB Conc 34.2 g/dL (31.0-36.0); Mean Corpuscular Hemoglobin 27.9 pg (26.0-34.0); Platelet Count 216 K/mcL (140-440); RBC 3.62 M/mcL (4.50-5.90); Red Cell Distribution Width 16.2 % (11.5-14.5)
[2017-03-15 14:26] LABS: ALT/SGPT 11 U/l (0-40); Albumin 4.3 gm/dL (3.2-5.2); Albumin/Globulin Ratio 1.2 (1.0-2.3); Alkaline Phosphatase 61 U/L (39-117); Blood Urea Nitrogen 45 mg/dl (8-23)
[2017-03-15 14:36] LABS: Anisocytosis 1+ (NONE SEEN); Band Neutrophils % 5 % (0-10); Eosinophils % (Manual) 6 % (0-7); Lymphocytes % 7 % (15-49); Monocytes % (Manual) 9 % (1-12); Platelet Estimate NORMAL (NORMAL); RBC Morphology ABNORM (NORMAL); Segmented Neutrophils % 73 % (38-78)
--- NOTE | 2017-03-15 15:49 | Cat Scan Report ---
CLINICAL INFORMATION: Left lower quadrant pain COMPARISON: Pelvic plain films from 06/06/2016. TECHNIQUE: 0.625 mm helical slices were obtained from the mid heart through the subtrochanteric regions. Following reconstruction, 2.5 mm sagittal, coronal and axial reformatted images were processed and reviewed at bone and soft tissue windows.The exam was performed using radiation dose optimization techniques including, but not limited to, automated exposure control, adjustment of the mA and/or kV according to patient size and use of iterative reconstruction technique. FINDINGS: Mild groundglass and interstitial disease within the lung bases is suspicious for interstitial fibrosis. No effusions. The visualized heart is moderately enlarged with calcification aortic and mitral valve region Images of the abdomen show the noncontrasted liver, gallbladder and bile ducts, pancreas, both adrenal glands, spleen and aorta to be normal in size , configuration and attenuation without focal lesion. There a few simple cysts in both kidneys, but no significant renal abnormality. No free air, free fluid or adenopathy. Images through the pelvis show prostate, seminal vesicles and urinary bladder are normal. Multiple sigmoid diverticuli are present, but no evidence of diverticulitis. The remaining colon, small bowel and stomach are grossly normal. A small (2.5 cm) periumbilical hernia contains only mesenteric fat. A right total hip prostheses remains anatomically aligned. There is a large amount of soft tissue destroying the right greater trochanter which is likely granulomas formation. There is also a moderate soft tissue distraction of the left inferior acetabulum last ischial region spanning 5 cm There is also likely a granuloma IMPRESSION: 1. Sigmoid diverticulosis. No CT evidence for diverticulitis; however, mild diverticulitis may be CT occult. 2. Right hip prostheses is anatomically aligned. There does appear to be marked granulomatous destruction of a greater trochanteric fragment and moderate destruction of the medial right acetabulum. Consider: CT-guided biopsy 3. . On the hernia containing only mesenteric fat 4. Moderate interstitial disease the lung bases - suspect interstitial fibrosis Interpreted and Authenticated by: Jalil Whatley 03/15/17
[2017-03-15] MEDS ORDERED: 0.9 % SODIUM CHLORIDE 250 ML IV SCH (16:15)
--- NOTE | 2017-03-15 16:54 | XRay Report ---
CLINICAL INFORMATION: CHF COMPARISON: 06/06/2016 FINDINGS: Moderate cardiomegaly is unchanged. Mediastinum is unremarkable. Pulmonary vessels are mildly distended and there is mild interstitial edema throughout both lungs. No infiltrates. Small right pleural effusion noted IMPRESSION: Mild CHF Interpreted and Authenticated by: Jalil Whatley 03/15/17
--- NOTE | 2017-03-15 16:56 | Internal Med History&Physical ---
Medical - H&P: HPI Patient information: Note initiated : 03/15/17 at 4:53 pm Service Date, if different from initiated Date: [] Patient: Davide Santo 86 y/o M admitted on for Weakness. Chief Complaint: [] History of present illness: Mr. Santo is a 86 year old Male with h/o chf, diverticulosis, DM, on [employer] home oxygen at 4L presents to the ER today after being evaluated by his PCP. The patient notes that he has not been feeling well x 5 days, he has had pain in the lower abdomen, crampy, associated with bowel movement,s no diarrhea, but bright red blood in the stools, he thought it would get better by itself, but it did not so he went to see his pcp, The patient also reports acute on chronic shortness of breath. no chest pain, no headache, some dizziness. The patient had a Chest X ray done by her PCP which was interpreted as chf. The patient was therefore sent to the ER for further evaluation. In the ER the patient was noted to be hemodynamically stable, Hb is 10.1, was 10.6 this AM in the PCP office, the note mentions a drop of 1 point from baseline. BUN creat is elevated, trop is 0.04, BNP 1167. 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 We do not have GI available for Colonoscopy, but Dr Webber is wililng to evaluate and consider colonoscopy. All systems: reviewed and no additional remarkable complaints except as stated ( as per HPI,) Medical - H&P: PMH Medical history: Medical History Volume depletion (Acute) Hyperglycemia due to type 2 diabetes mellitus (Acute) Hyponatremia (Acute) Orthostasis (Acute) Leukocytosis (Acute) Supratherapeutic INR (Acute) Acute lower GI bleeding (Acute) Atypical chest pain (Acute) Congestive heart failure (Acute) Closed right hip fracture (Acute) PVD CKD gout Afib, on eliquis HTN COPD Surgical history: TURP HIP replacement Family history: reviewed and not pertinent Pertinent family history: MOther had some cancer, not sure Social history: former smoker denies drug use, denies etoh use, retired single Medical - H&P: Meds Home Medications Medication Instructions Recorded Confirmed Type Allopurinol [Zyloprim] 100 mg PO DAILY 07/07/15 06/06/16 History Digoxin [Digitek] 125 mcg PO SUMOWEFR@1400 07/07/15 06/06/16 History Furosemide [Lasix] 80 mg PO BIDD 07/07/15 06/06/16 History Metoprolol Tartrate [Lopressor] 50 mg PO BID 07/07/15 06/07/16 History Potassium Chloride [Klor-Con M20] 20 meq PO BID@0800,1200 07/07/15 06/06/16 History Digoxin [Lanoxin] 62.5 mcg PO TUTHSA@1400 06/06/16 06/06/16 History Insulin Glargine, Human [Lantus] 5 unit SQ HS 06/06/16 06/07/16 History Potassium Chloride [Kdur] 40 meq PO HS 06/06/16 06/06/16 History glipiZIDE [Glipizide ER] 5 mg PO DAILY 06/06/16 06/06/16 History Metolazone 2.5 mg PO PRN PRN 06/07/16 06/07/16 History Hydrocodone/APAP 7.5/325Mg [[place] 1 - 2 tab PO BIDP PRN #14 tablet 06/08/16 Rx 7.5/325Mg] Allergies Allergy/AdvReac Type Severity Reaction Status Date / Time No Known Drug Allergies Allergy Unknown Verified 03/15/17 12:32 [NO KNOWN DRUG ALLERGIES] Medical - H&P: Exam - Constitutional Vitals: Temp Pulse Resp BP Pulse Ox 96.7 F L 66 18 110/78 98 03/15/17 12:28 03/15/17 16:04 03/15/17 16:04 03/15/17 16:04 03/15/17 16:04 Exam: GENERAL: The patient is a well-developed, well-nourished in no apparent distress. Is alert and oriented x3. VITAL SIGNS: Reviewed and as noted elsewhere. HEENT: Head is normocephalic and atraumatic. Extraocular muscles are intact. Pupils are equal, round, and reactive to light. Nares appeared normal. Mouth appears any without lesions. Mucous membranes are moist. NECK: Normal to inspection, Supple, No lymphadenopathy or thyromegaly. LUNGS: Air entry equal on both sides, no wheezing, or rhonchi noted. No accessory muscles of respiration. Mild Basilar Crackles noted HEART: Regular rate and rhythm irregular, S1 and S2 heard, no Gallop, S3 or Rub Noted, 4/6 murmur systolic, aortic region. ABDOMEN: Soft, nontender, and nondistended. Positive bowel sounds. No hepatosplenomegaly was noted. EXTREMITIES: No cyanosis, clubbing, rash, lesions, edema + NEUROLOGIC: Cranial nerves II through XII are grossly intact. Motor and Sensory System Grossly Intact PSYCHIATRIC: Normal affect, Normal Mood. Appropriate Behavior. SKIN: No ulceration or wounds noted, No jaundice, No rash noted. Medical - H&P: Reslt - Labs CBC & Chem 7: 03/15/17 13:20 03/15/17 13:35 Labs: Short CBC 03/15/17 Range/Units 13:20 WBC 10.2 (4.5-11.0) K/mcL Hgb 10.1 L (13.5-16.5) g/dL Hct 29.5 L (41.0-55.0) % Plt Count 216 (140-440) K/mcL BMP 03/15/17 13:35 Sodium 137 Potassium 3.3 Chloride 87 L Carbon Dioxide 35 H BUN 45 H Creatinine 1.8 H Glucose 129 H Calcium 10.2 Cardiac Enzymes 03/15/17 Range/Units 13:20 Troponin T 0.04 H* (0-0.03) ng/ml Liver Function 03/15/17 Range/Units 13:35 Total Bilirubin 0.7 (0.0-1.0) mg/dL AST 16 (0-37) U/l ALT 11 (0-40) U/l Alkaline Phosphatase 61 (39-117) U/L Albumin 4.3 (3.2-5.2) gm/dL Medical - H&P: A/P - Narrative A/P Narrative: A/P Acute Lower GI bleed: High risk due to Age, and use of blood thinners, admit to telemetery for now, Hb is stable, pt is hemodynamically stable at this point. trend hb, Surgery consult, type and cross match, keep 4 units of blood ready, Xfuse if needed. CT reviewed, pt has h/o colonoscopy 6 months ago which was neg , EGD 6 months ago neg as per patient. Patient may need repeat Colnoscopy. Bleed appears Diverticular in nature. Diverticulitis: ? Not sure if has diverticulitis, does have CHF exacerbation/ Type 2 UT: Patient has elevated bnp and mild elevation of troponin, no chest pain, does have shortness of breath on exertion, slightly worse than baseline. Unable to quantify change in functional status, but lives at home byself, does not go out much. Patient is baseline [facility] grad 3 chf based on symptoms. His Chest X ray shows pulmonary congestion, to mild chf, IV lasix 40mg x 1 for now. monitor I/O, BP on the soft end, will resume home diuretic regime if needed. DM: Type 2 DM, hold oral meds, ssi insulin for now. Afib, on metoprolol, digoxin as well as eliquis for anticoagulation, hold Eliquis for now, await surgery ok before resumption of same, INR is 1.2 COPD: on 4 L oxygen, no wheeze on exay, duonebs and budesonide bid for now. 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 give one dose of lasix, monitor, DVT off eliquis today, scd Full code/ verify code status Carb consistent Diet
[2017-03-15] MEDS ORDERED: ACETAMINOPHEN 325 MG TABLET PO PRN (17:38)
[2017-03-15] MEDS ORDERED: FUROSEMIDE 40 MG/4 ML VIAL IV ONE (17:38)
[2017-03-15] MEDS ORDERED: ONDANSETRON 4 MG/2 ML VIAL IV PRN (17:38)
[2017-03-15] MEDS ORDERED: HYDROcodone/APAP 10/325MG TABLET PO PRN (17:38)
[2017-03-15] MEDS ORDERED: DEXTROSE 31 GM ORAL.SUSP PO PRN (17:38)
[2017-03-15] MEDS ORDERED: DEXTROSE 50% 50 ML VIAL IV PRN (17:38)
[2017-03-15] MEDS ORDERED: NALOXONE HCL 0.4 MG/ML VIAL IV PRN (17:38)
[2017-03-15] MEDS: IPRATROPIUM/ALBUTEROL 3 ML AMPUL.NEB NEB SCH (19:38)
[2017-03-15] MEDS: INSULIN LISPRO 1 UNIT/0.01 ML UNIT SQ SCH ×2 (20:31→20:53)
[2017-03-15] MEDS: BUDESONIDE 0.5 MG/2 ML AMPUL.NEB NEB SCH (21:03)
[2017-03-15 23:37] LABS: Basophils # (Auto) 0.1 K/mcL (0.0-0.3); Basophils % (Auto) 0.8 % (0.0-2.0); Eosinophils # (Auto) 0.2 K/mcL (0.0-0.7); Eosinophils % (Auto) 2.5 % (0.0-7.0); Granulocytes % (Auto) 75.9 % (38.0-78.0); Lymphocytes # (Auto) 1.4 K/mcL (1.5-4.8); Lymphocytes % (Auto) 15.1 % (15.5-49.0); Mean Cell Volume 82.2 fL (80.0-100.0); Mean Corpuscular HGB Conc 33.4 g/dL (31.0-36.0); Mean Corpuscular Hemoglobin 27.4 pg (26.0-34.0); Monocytes # (Auto) 0.5 K/mcL (0.1-0.9); Monocytes % (Auto) 5.7 % (1.0-12.0); Platelet Count 221 K/mcL (140-440); RBC 3.66 M/mcL (4.50-5.90); Red Cell Distribution Width 16.6 % (11.5-14.5)
[2017-03-16] MEDS: IPRATROPIUM/ALBUTEROL 3 ML AMPUL.NEB NEB SCH ×7 (00:43→19:22)
[2017-03-16 05:38] LABS: Basophils # (Auto) 0 K/mcL (0.0-0.3); Basophils % (Auto) 0.3 % (0.0-2.0); Eosinophils # (Auto) 0.4 K/mcL (0.0-0.7); Eosinophils % (Auto) 3.8 % (0.0-7.0); Lymphocytes # (Auto) 1.1 K/mcL (1.5-4.8); Lymphocytes % (Auto) 9.8 % (15.5-49.0); Mean Cell Volume 83.8 fL (80.0-100.0); Mean Corpuscular HGB Conc 33.2 g/dL (31.0-36.0); Mean Corpuscular Hemoglobin 27.9 pg (26.0-34.0); Monocytes # (Auto) 0.8 K/mcL (0.1-0.9); Monocytes % (Auto) 7.1 % (1.0-12.0); Platelet Count 232 K/mcL (140-440); RBC 3.64 M/mcL (4.50-5.90); Red Cell Distribution Width 17.3 % (11.5-14.5)
[2017-03-16 05:48] LABS: ALT/SGPT 10 U/l (0-40); Albumin 3.9 gm/dL (3.2-5.2); Albumin/Globulin Ratio 1.1 (1.0-2.3); Alkaline Phosphatase 58 U/L (39-117); Bilirubin,Direct < 0.2 mg/dL (0.0-0.3); Blood Urea Nitrogen 51 mg/dl (8-23); Gamma Glutamyl Transpeptidase 15 U/L (8-61); Uric Acid 13.6 mg/dL (2.5-8.0)
[2017-03-16] MEDS ORDERED: POTASSIUM CHLORIDE 20 MEQ PACKET PO ONE (07:56)
[2017-03-16] MEDS: INSULIN LISPRO 1 UNIT/0.01 ML UNIT SQ SCH ×4 (09:20→20:43)
[2017-03-16] MEDS: BUDESONIDE 0.5 MG/2 ML AMPUL.NEB NEB SCH ×2 (09:50→21:06)
[2017-03-16] MEDS ORDERED: DIGOXIN 125 MCG TABLET PO ONE (10:26)
[2017-03-16] MEDS: METOPROLOL TARTRATE 50 MG TABLET PO SCH ×2 (11:03→20:43)
--- NOTE | 2017-03-16 11:39 | Internal Med Progress Note ---
Medical - PN: Subj Patient information: Note initiated : 03/16/17 at 11:34 am Service Date, if different from initiated Date: [] Patient: Davide Santo 86 y/o M admitted on 03/15/17 for Weakness. Chief Complaint: [] Interval history: Mr. Santo is a 86 year old Male with h/o chf, diverticulosis, DM, on [employer] home oxygen at 4L presents to the ER today after being evaluated by his PCP. The patient notes that he has not been feeling well x 5 days, he has had pain in the lower abdomen, crampy, associated with bowel movement,s no diarrhea, but bright red blood in the stools, he thought it would get better by itself, but it did not so he went to see his pcp, The patient also reports acute on chronic shortness of breath. no chest pain, no headache, some dizziness. The patient had a Chest X ray done by her PCP which was interpreted as chf. The patient was therefore sent to the ER for further evaluation. In the ER the patient was noted to be hemodynamically stable, Hb is 10.1, was 10.6 this AM in the PCP office, the note mentions a drop of 1 point from baseline. BUN creat is elevated, trop is 0.04, BNP 1167. 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 We do not have GI available for Colonoscopy, but Dr Webber is wililng to evaluate and consider colonoscopy. Mar 16 patient seen examined, overnight issues reviewed, one episode of blood BM, He is mildy tachcyardic today, but no blood in stools, hb stable at 10.1, patient has no complaints. on clear liquid diet. Some misunderstanding between the patient and Dr Webber, and this resulted in Dr Webber not wishing to see the patient ( per Dr Webber pt was very rude and disrespectful to him) I reviewed the case with Gi physician security controls assessor dr Madrigal, who does not have a [facility] lic, therefore cannot do a consult, but noted that since pt has recent Colonoscopy showing diverticulosis, and is on eliquis, we can hold off eliquis and monitor patient, only if he continues to bleed or becomes hemodynamically unstable, would he warrant a transfer. He is tachycardic today, but has not had his cardiac meds, resume same. Pertinent ROS: Denies headache, dizziness Denies chest pain, palpitations Denies cough or shortness of breath Denies abdominal pain, nausea or vomiting. - Constitutional Vitals: Vital Signs Temp Pulse Resp BP Pulse Ox 98.2 F 110 H 18 132/82 97 03/16/17 11:12 03/16/17 11:12 03/16/17 11:12 03/16/17 11:12 03/16/17 11:12 Period Temp Pulse Resp BP Sys/Fletcher Pulse Ox Last 24 Hr 96.7 F-98.2 F 39-115 - 107-210/35-180 80-100 Intake and Output 03/15/17 03/16/17 03/16/17 21:59 05:59 13:59 Intake Total 300 / 300 500 / 500 Output Total 425 / 425 645 / 645 300 / 300 Balance -425 / -425 -345 / -345 200 / 200 Weight 188 lb Intake & Output: Intake & Output 03/15/17 03/16/17 03/16/17 21:59 05:59 13:59 Intake Total 300 / 300 500 / 500 Output Total 425 / 425 645 / 645 300 / 300 Balance -425 / -425 -345 / -345 200 / 200 Weight 188 lb Intake: Oral 500 / 500 GI Tube Flush 300 / 300 Output: Void Amount 425 / 425 645 / 645 300 / 300 Other: Meal Breakfast Percent of Meal Consumed 95 Feeding Ability Independent # Voids 1 1 # Bowel Movements 1 Exam: Constitutional; Afebrile, cooperative, alert, not in distress. Eyes- No icterus, , No periorbital swelling Ears- Ext ear normal, hearing normal to conversation. Neck- Midline trachea, supple Respiratory system: Air Entry equal on both sides, No crackles or wheezing, no rhonchi. CVS- Rate tacycardic, rhythm irregular, S1,S2 heard, no gallop, no rub. Abdomen- Soft nontender abdomen, no organomegaly, no tenderness, no guarding or rigidity, [employer]IST[employer]- AOOx3, moving all extremities, no gross focal deficit noted. Medical - PN: Obj Da - Labs CBC & Chem 7: 03/16/17 03:35 03/16/17 03:35 Labs: Abnormal Lab Results 03/16/17 03/16/17 03/15/17 03:35 03:35 21:15 RBC 3.64 L Hgb 10.1 L Hct 30.5 L POC Hct RDW 17.3 H Gran % 79.0 H Lymph % (Auto) 9.8 L Gran # 8.7 H Lymph # (Auto) 1.1 L Lymphocytes % RBC Morphology Polychromasia Anisocytosis PT INR Potassium 3.1 L POC Chloride Chloride 86 L Carbon Dioxide 31 H POC Total CO2 Anion Gap 20.0 H POC BUN BUN 51 H Creatinine 2.0 H POC Creatinine Glucose 185 H POC Glucose Uric Acid 13.6 H POC WB Ioniz Calcium Phosphorus 4.9 H Lactate Dehydrogenase 292 H Troponin T 0.04 H* NT-Pro-B Natriuret Pep 03/15/17 03/15/17 03/15/17 21:15 13:35 13:35 RBC 3.66 L Hgb 10.0 L Hct 30.1 L POC Hct 30.0 L RDW 16.6 H Gran % Lymph % (Auto) 15.1 L Gran # Lymph # (Auto) 1.4 L Lymphocytes % RBC Morphology Polychromasia Anisocytosis PT 15.2 H INR 1.2 H Potassium POC Chloride 88 L Chloride 87 L Carbon Dioxide 35 H POC Total CO2 40 H Anion Gap POC BUN 49 H BUN 45 H Creatinine 1.8 H POC Creatinine 2.0 H Glucose 129 H POC Glucose 132 H Uric Acid POC WB Ioniz Calcium 1.12 L Phosphorus Lactate Dehydrogenase Troponin T NT-Pro-B Natriuret Pep 1167.0 H 03/15/17 03/15/17 13:20 13:20 RBC 3.62 L Hgb 10.1 L Hct 29.5 L POC Hct RDW 16.2 H Gran % Lymph % (Auto) Gran # Lymph # (Auto) Lymphocytes % 7 L RBC Morphology Abnorm A Polychromasia 1+ A Anisocytosis 1+ A PT INR Potassium POC Chloride Chloride Carbon Dioxide POC Total CO2 Anion Gap POC BUN BUN Creatinine POC Creatinine Glucose POC Glucose Uric Acid POC WB Ioniz Calcium Phosphorus Lactate Dehydrogenase Troponin T 0.04 H* NT-Pro-B Natriuret Pep Meds: Medications Acetaminophen (Tylenol) 650 mg PO Q6HP PRN PRN Reason: PAIN/FEVER > 101 Hydrocodone Bitart/Acetaminophen (Gordon 10/325mg) 1 tab PO Q4HP PRN PRN Reason: Pain Albuterol/Ipratropium (Duoneb) 3 ml NEB Q4HRT [facility] Last Admin: 03/16/17 09:51 Dose: 3 ml Budesonide (Pulmicort) 0.5 mg NEB Q12 [facility] Last Admin: 03/16/17 09:50 Dose: 0.5 mg Dextrose (Dextrose 50%) 0 ml IV UD PRN PRN Reason: Hypoglycemia Diagnostic Test (Pha) (Accu-Chek) 1 each [facility] Last Admin: 03/16/17 07:45 Dose: 1 each Furosemide (Lasix) 80 mg PO BIDD [facility] Glucose (Insta-Glucose) 15 gm PO PRN PRN PRN Reason: Hypoglycemia Insulin Human Lispro (Humalog) 0 unit SQ [facility] PRN Reason: Protocol Last Admin: 03/16/17 09:20 Dose: 2 unit Metoprolol Tartrate (Lopressor) 50 mg PO BID [facility] Last Admin: 03/16/17 11:03 Dose: 50 mg Naloxone HCl (Narcan) 0.1 mg IV Q2MIN PRN PRN Reason: Opiate Reversal Ondansetron HCl (Zofran) 4 mg IV Q4HP PRN PRN Reason: Nausea And Vomiting Potassium Chloride (Kdur) [facility] - PN: A/P - Time Spent With Patient Total time spent is greater than 50% in coordination of care (as documented) at patient's floor/unit and/or counseling patient: - Narrative A/P Narrative: A/P Acute Lower GI bleed: High risk due to Age, and use of blood thinners, admit to telemetery for now, Hb is stable, pt is hemodynamically stable at this point. trend hb, blood tranfusion not needed yet, plan ot monitor, x lacie to other hospital if significant bleeding persists, Diverticulitis: ? Not sure if has diverticulitis, does have neg CT. CHF exacerbation/ Type 2 MO: xray neg, resume home dose of diuresis. DM: Type 2 DM, hold oral meds, ssi insulin for now. Afib, on metoprolol, digoxin as well as eliquis for anticoagulation eliquis held , rate tachcyardic, will resume home dose and monitor. COPD: on 4 L oxygen, no wheeze on exam, duonebs and budesonide bid for now. 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 creat stable at 2.0 today. DVT off eliquis today, scd Full code/ verify code status Clear liquid diet. Medical - PN: Qual - VTE Deep Vein Thrombosis/Pulmonary Embolism Present on Admission: No
[2017-03-16] MEDS: POTASSIUM CHLORIDE 20 MEQ TABLET PO SCH (16:54)
[2017-03-16] MEDS: FUROSEMIDE 80 MG TABLET PO SCH (16:54)
[2017-03-17] MEDS: IPRATROPIUM/ALBUTEROL 3 ML AMPUL.NEB NEB SCH ×3 (03:38→11:45)
[2017-03-17 06:37] LABS: Basophils # (Auto) 0 K/mcL (0.0-0.3); Basophils % (Auto) 0.3 % (0.0-2.0); Eosinophils # (Auto) 0.3 K/mcL (0.0-0.7); Eosinophils % (Auto) 3.4 % (0.0-7.0); Granulocytes % (Auto) 78.1 % (38.0-78.0); Lymphocytes # (Auto) 1.1 K/mcL (1.5-4.8); Mean Cell Volume 84.1 fL (80.0-100.0); Mean Corpuscular HGB Conc 33.5 g/dL (31.0-36.0); Mean Corpuscular Hemoglobin 28.1 pg (26.0-34.0); Monocytes # (Auto) 0.6 K/mcL (0.1-0.9); Monocytes % (Auto) 6.2 % (1.0-12.0); Platelet Count 217 K/mcL (140-440); RBC 3.36 M/mcL (4.50-5.90); Red Cell Distribution Width 17.3 % (11.5-14.5)
[2017-03-17 06:46] LABS: ALT/SGPT 10 U/l (0-40); Albumin 3.6 gm/dL (3.2-5.2); Albumin/Globulin Ratio 1.1 (1.0-2.3); Alkaline Phosphatase 55 U/L (39-117); Bilirubin,Direct < 0.2 mg/dL (0.0-0.3); Blood Urea Nitrogen 39 mg/dl (8-23); Gamma Glutamyl Transpeptidase 15 U/L (8-61); Uric Acid 13.8 mg/dL (2.5-8.0)
[2017-03-17] MEDS: INSULIN LISPRO 1 UNIT/0.01 ML UNIT SQ SCH ×2 (08:40→11:53)
[2017-03-17] MEDS: POTASSIUM CHLORIDE 20 MEQ TABLET PO SCH (09:01)
[2017-03-17] MEDS: FUROSEMIDE 80 MG TABLET PO SCH (09:03)
[2017-03-17] MEDS: METOPROLOL TARTRATE 50 MG TABLET PO SCH (09:07)
--- NOTE | 2017-03-17 10:53 | Discharge Summary ---
Medical - DS: Prov Patient information: Note initiated : 03/17/17 at 10:50 am Service Date, if different from initiated Date: [] Patient: Davide Santo 86 y/o M admitted on 03/15/17 for Weakness. Chief Complaint: [] Date of admission: 03/15/17 17:30 Discharge date: 03/17/17 Primary care physician: Georgia Roberts Admitting clinician: João Mack Consults: 03/15/17 15:58 Consult to Physician [CONS] Stat Comment: Consulting Provider: João Mack Reason For Exam: Physician to Consult 03/15/17 17:38 Consult to Physician [CONS] Stat Comment: Consulting Provider: David Lema Reason For Exam: Physician to Consult Discharging clinician: João Mack Medical - DS: Meds - Discharge Medications Prescriptions: Metoprolol Tartrate [Lopressor] 25 mg PO BID #60 tab Active and Home Medications: Home Medications Allopurinol [Zyloprim] 100 mg PO DAILY 07/07/15 [History Confirmed 06/06/16 Last Taken 06/06/16 08:00] Digoxin [Digitek] 125 mcg PO SUMOWEFR@1400 07/07/15 [History Confirmed 06/06/16 Last Taken 06/04/16] Furosemide [Lasix] 80 mg PO BIDD 07/07/15 [History Confirmed 06/06/16 Last Taken 06/06/16 08:00] Metoprolol Tartrate [Lopressor] 50 mg PO BID 07/07/15 [History Confirmed Last Taken 06/06/16 08:00] Potassium Chloride [Klor-Con M20] 20 meq PO BID@0800,1200 07/07/15 [History Confirmed 06/06/16 Last Taken 06/06/16 08:00] Digoxin [Lanoxin] 62.5 mcg PO TUTHSA@1400 06/06/16 [History Confirmed 06/06/16 Last Taken 06/05/16] Insulin Glargine, Human [Lantus] 5 unit SQ HS 06/06/16 [History Confirmed Last Taken 06/05/16] Potassium Chloride [Kdur] 40 meq PO HS 06/06/16 [History Confirmed 06/06/16 Last Taken 06/05/16] glipiZIDE [Glipizide ER] 5 mg PO DAILY 06/06/16 [History Confirmed 06/06/16 Last Taken 06/06/16 08:00] Metolazone 2.5 mg PO PRN PRN 06/07/16 [History Confirmed 06/07/16 Last Taken Unknown] Hydrocodone/APAP 7.5/325Mg [[place] 7.5/325Mg] 1 - 2 tab PO BIDP PRN #14 tablet [Rx Confirmed 03/16/17 Last Taken Unknown] Medical - DS: Hosp Hospital course: Mr. Santo is a 86 year old Male with h/o chf, diverticulosis, DM, on [employer] home oxygen at 4L presented to the ER after being evaluated by his PCP. The patient notes that he has not been feeling well x 5 days, he has had pain in the lower abdomen, crampy, associated with bowel movement,s no diarrhea, but bright red blood in the stools, he thought it would get better by itself, but it did not so he went to see his pcp, The patient also reports acute on chronic shortness of breath. no chest pain, no headache, some dizziness. The patient had a Chest X ray done by her PCP which was interpreted as chf. The patient was therefore sent to the ER for further evaluation. In the ER the patient was noted to be hemodynamically stable, Hb is 10.1, was 10.6 this AM in the PCP office, the note mentions a drop of 1 point from baseline. BUN creat is elevated, trop is 0.04, BNP 1167. The patient had a CT scan done, which shows no acute diveritculitis, Lower GI Bleed Patient had one episode of lower gi bleed during the hospital stay, and then this stopped. He had had a colonoscopy done in august last year, which was unrevealing. Initially it was planned that Dr Lema would evaluate the patient and help with colonoscopy, but due to some mis understanding between the patient and Dr lema, Dr Lema did not follow the patient. The patients case was discussed with Dr Madrigal who advised stopping eliquis and monitoring pt, pt bleeding stopped after cessation of eqlius. I have reviewed this with the patient. Patient advised to follow up with PCP to evaluate need for ongoing need for anticoagulation therapy. He is also advised to follow up with Dr Stephen for lower GI bleed Afib on metoprolol and digoxsin, patient dig level was 0.5, he did have some cardiac pauses during this visit, therefore the dose of metoprolol is being reduced from 50mg bid to 25mg bid. He will likely need to follow up with PCP for further evaluation, possible cardiology eval vs holter monitor as outpatient and adjustment of his cardiac meds will be needed. The rest of the stay in the hospital was uneventful, no changes in [facility] home meds done except as listed above. Discharge diagnosis: Lower GI Bleed. - Time Spent with Patient Total time spent providing and/or coordinating discharge services: Greater than 30 minutes Medical - DS: Exam - Constitutional Vitals: Vital Signs Temp Pulse Resp BP BP Pulse Ox 03/17/17 08:15 94 03/17/17 08:10 97.7 F 20 95/84 94 03/17/17 04:00 98.5 F 18 103/78 96 03/17/17 00:00 97.9 F 17 104/78 97 03/16/17 19:22 98.1 F 76 20 145/96 98 03/16/17 15:52 98.5 F 85 18 120/76 98 03/16/17 11:12 98.2 F 110 H 18 132/82 97 Intake and Output 03/16/17 03/17/17 03/17/17 21:59 05:59 13:59 Intake Total 180 / 180 480 / 480 Output Total 825 / 825 475 / 475 Balance -645 / -645 -475 / -475 480 / 480 Intake: Oral 180 / 180 480 / 480 Output: Void Amount 825 / 825 475 / 475 Other: Meal Breakfast # Voids 1 Weight 189 lb 8 oz Additional comments: Constitutional; Afebrile, cooperative, alert, not in distress. Eyes- No icterus, , No periorbital swelling Ears- Ext ear normal, hearing normal to conversation. Neck- Midline trachea, supple Respiratory system: Air Entry equal on both sides, No crackles or wheezing, no rhonchi. CVS- Rate rhythm irregular, S1,S2 heard, no gallop, no rub. Abdomen- Soft nontender abdomen, no organomegaly, no tenderness, no guarding or rigidity, [employer]- AOOx3, moving all extremities, no gross focal deficit noted. Medical - DS: Data Labs on day of discharge: Labs from last 24 hours 03/17/17 03/17/17 03/16/17 03:50 03:50 15:43 WBC 9.2 RBC 3.36 L Hgb 9.4 L 9.8 L Hct 28.2 L 30.0 L MCV 84.1 MCH 28.1 MCHC 33.5 RDW 17.3 H Plt Count 217 MPV 8.6 Gran % 78.1 H Lymph % (Auto) 12.0 L Hawkins % (Auto) 6.2 Eos % (Auto) 3.4 Baso % (Auto) 0.3 Gran # 7.2 Lymph # (Auto) 1.1 L Hawkins # (Auto) 0.6 Eos # (Auto) 0.3 Baso # (Auto) 0 Sodium 136 Potassium 3.5 Chloride 89 L Carbon Dioxide 30 Anion Gap 17.0 H BUN 39 H Creatinine 1.7 H GFR Calculation 36 Glucose 126 H Uric Acid 13.8 H Calcium 9.5 Phosphorus 3.3 Magnesium 2.1 Total Bilirubin 0.7 Direct Bilirubin < 0.2 GGT 15 AST 16 ALT 10 Alkaline Phosphatase 55 Lactate Dehydrogenase 282 H Total Protein 7.0 Albumin 3.6 Globulin 3.4 Albumin/Globulin Ratio 1.1 Triglycerides 127 Medical - DS: A/P - Patient/Caregiver Discharge Instructions Activity: increase activity as tolerated Diet: Cardiac Additional Instructions: You were admitted for blood in stools, which was likely from diverticulosis You are advised to stop taking eliquis. Talk to your doctor whether you need to continue taking eliquis in the long run especially in light of recurrent Lower GI bleeds You had slow heart rate during this stay and therefor dose of metoprolol is being cut from 50mg bid to 25mg bid. The rest of your medications are unchanged FOllow up with PCP in [address] up [address] Stephen, GI doctor in 2-3 weeks Go to the ER if worsening new blood in stools, dizziness or chest pain or any other concerning symptom. - Follow up Plan Follow up with: Georgia Roberts MD [Primary Care Provider] - Disposition: Home, Self-Care Prognosis: Fair Rehab Potential: Fair I certify that the patient requires SNF services: No Overall status at discharge: patient is back to baseline Medical - DS: Qual - VTE Deep Vein Thrombosis/Pulmonary Embolism Present on Admission: No
[2017-03-17] MEDS: BUDESONIDE 0.5 MG/2 ML AMPUL.NEB NEB SCH (11:44)
== END 2017-03-17 12:40 | disposition home or self-care (01) | DRG 378 ==
LOC: ED 12:27 → ICU 17:30
PROVIDERS: ADMIT Internal Medicine; ATTEND Internal Medicine